=== PATIENT | female | born 2000 | race Two or more races ===

== ENCOUNTER 2022-05-31 07:08 | Emergency (ER) | payer OTHER ==
[~2022-05-31] VITALS: Ht 172.7 cm; Wt 68.0 kg
[~2022-05-31 07:08] MED LIST: SINGULAIR4 MG
[2022-05-31] MEDS ORDERED: MOTRIN IB200 MG PO (10:53)
[2022-05-31] MEDS ORDERED: CHLORASEPTIC T1 EACH PO (10:53)
== END 2022-05-31 11:01 | disposition home or self-care (01) ==
LOC: ER 07:08 → EMR PED 07:11
DX: U07.1 COVID-19 (principal)